=== PATIENT | female | born 1945 | race Caucasian/White ===

== ENCOUNTER → 2023-09-22 07:04 | Outpatient (REF) | payer MEDICARE, BC, SELFPAY | LOC: WDC 07:04 | PROVIDERS: ATTENDING PHYSICIAN Internal Medicine Geriatric Medicine | DX: Z12.31 Encounter for screening mammogram for malignant neoplasm of breast (principal) | CPT/HCPCS: 77063; 77067 ==

== ENCOUNTER → 2024-10-05 07:05 | Outpatient (REF) | payer MEDICARE, BC, SELFPAY | LOC: WDC 07:05 | PROVIDERS: ATTENDING PHYSICIAN Internal Medicine Geriatric Medicine | DX: Z12.31 Encounter for screening mammogram for malignant neoplasm of breast (principal) | CPT/HCPCS: 77063; 77067 ==